=== PATIENT | male | born 1990 | race Caucasian/White ===

== ENCOUNTER 2017-09-26 20:10 | Emergency (ER) | payer OTHER ==
[~2017-09-26] VITALS: Ht 177.8 cm; Wt 81.6 kg
--- NOTE | 2017-09-26 20:30 | NUR ---
PT PRESENTED TO THE ER WITH A C/O HEAD INJURY YESTERDAY WHILE SNOWBOARDING. PT STATED THAT HE WAS WEARING A HELMET AND FELL BACK HITTING HIS HEAD. PT DENIES HEAD PAIN AT THIS TIME. PT IS C/O NECK PAIN / STIFFNESS.
--- NOTE | 2017-09-26 21:05 | NUR ---
Patient discharged to home in stable condition. Written and verbal after care instructions given. Patient verbalizes understanding of instruction. PT AMBULATED OUT WITH A STEADY GAIT. VSS.
[2017-09-26 21:13] VITALS: BP 133/77
== END 2017-09-26 21:05 | disposition home or self-care (01) ==
LOC: ER 20:10
DX: S09.90XA Unspecified injury of head, initial encounter (principal); F07.81 Postconcussional syndrome; W18.39XA Other fall on same level, initial encounter; Y93.23 Activity, snow (alpine) (downhill) skiing, snowboarding, sledding, tobogganing and snow tubing; Y92.89 Other specified places as the place of occurrence of the external cause; Y99.8 Other external cause status; F17.200 Nicotine dependence, unspecified, uncomplicated
CPT/HCPCS: A4606; Z7502; Z7610